=== PATIENT | female | born 1965 | race Caucasian/White ===

== ENCOUNTER 2017-01-02 12:41 | Emergency (ER) | payer OTHER ==
[~2017-01-02] VITALS: Ht 160 cm; Wt 75.0 kg
[2017-01-02 12:55] VITALS: BP 127/68
== END 2017-01-02 17:48 | disposition home or self-care (01) ==
LOC: ER 16:38
DX: M25.561 Pain in right knee (principal); R03.0 Elevated blood-pressure reading, without diagnosis of hypertension
CPT/HCPCS: 73562; 99284

== ENCOUNTER 2019-04-24 11:22 | Emergency (ER) | payer MEDICAID, OTHER ==
[~2019-04-24] VITALS: Ht 160 cm; Wt 78.0 kg
[2019-04-24 15:21] LABS: CLARITY URINE CLEAR (CLEAR); COLOR URINE YELLOW (YELLOW); KETONES URINE NEGATIVE (NEGATIVE); LEUKOCYTE ESTERASE URINE NEGATIVE (NEGATIVE); NITRITE URINE NEGATIVE (NEGATIVE); OCCULT BLOOD URINE TRACE (NEGATIVE); PH URINE 7.5 (4.5-8.0); PROTEIN URINE NEGATIVE (NEGATIVE); SPECIFIC GRAVITY URINE 1.012 (1.005-1.030); UROBILINOGEN URINE 0.2 E.U./dL (0.2-1.0)
[2019-04-24 15:23] LABS: BASOPHILS % 0.6 % (0.0-2.0); EOSINOPHILS % 1.2 % (0.0-5.0); HEMATOCRIT. 42.4 % (36.0-48.0); HEMOGLOBIN. 14.5 g/dL (12.0-16.0); LYMPHOCYTES % 42.4 % (20.0-50.0); MEAN CORPUSCULAR HEMOGLOBIN 30.7 pg (28.0-32.0); MEAN CORPUSCULAR VOLUME 89.8 fL (81.0-99.0); MEAN PLATELET VOLUME 8.5 fl (7.4-10.4); MONOCYTES % 5.3 % (2.0-8.0); NEUTROPHILS % 50.5 % (40.0-76.0); PLATELET 214 x1000/uL (130-400); RED BLOOD CELL COUNT 4.72 mill/uL (4.2-5.4)
[2019-04-24 15:26] LABS: CHLORIDE 104 mEq/L (98-107)
[2019-04-24 15:30] LABS: ETHANOL BLOOD < 10 mg/dL
[2019-04-24 15:31] LABS: *AMPHETAMINES SCREEN URINE NEGATIVE (NEGATIVE); *BARBITURATES SCREEN URINE NEGATIVE (NEGATIVE)
[2019-04-24 15:33] LABS: *BENZODIAZEPINES SCREEN URINE NEGATIVE (NEGATIVE); *COCAINE SCREEN URINE NEGATIVE (NEGATIVE); CANNABINOID URINE SCREEN NEGATIVE (NEGATIVE); OPIATES URINE SCREEN NEGATIVE (NEGATIVE); PHENCYCLIDINE URINE SCREEN NEGATIVE (NEGATIVE)
[2019-04-24 15:34] LABS: METHADONE URINE SCREEN NEGATIVE (NEGATIVE)
[2019-04-24] MEDS ORDERED: KETOROLAC 30MG/ML VIAL IV ONE (16:00)
[2019-04-24 17:23] VITALS: BP 147/76
== END 2019-04-24 18:26 | disposition home or self-care (01) ==
LOC: ER 11:22
DX: H53.8 Other visual disturbances (principal); R51 Headache
CPT/HCPCS: 36415; 70450; 80053; 80305; 80320; 81003; 82962; 85025; 96374; 99284; J1885; G0480

== ENCOUNTER 2021-07-15 15:35 | Emergency (ER) | payer MEDICAID ==
[~2021-07-15] VITALS: Ht 160 cm; Wt 68.0 kg
[2021-07-15] MEDS ORDERED: MORPHINE SULFATE 4 MG/ML CPJ (NOT FOR IM USE) IV STA (15:47)
[2021-07-15] MEDS ORDERED: MAGNESIUM/ALUMINUM HYDROXIDE/SIMETHICONE 30ML UDC PO STA ×2 (15:47)
[2021-07-15] MEDS ORDERED: PANTOPRAZOLE SODIUM 40 MG/VIAL IV STA (15:47)
[2021-07-15] MEDS ORDERED: METOCLOPRAMIDE HCL 10MG/2ML VIAL IV STA (15:47)
[2021-07-15] MEDS ORDERED: VISCOUS LIDOCAINE 2% 15 ML UDC PO STA (15:47)
[2021-07-15 15:48] VITALS: BP 170/74
[2021-07-15 16:57] LABS: BASOPHILS % 0.7 % (0.0-2.0); EOSINOPHILS % 0.4 % (0.0-5.0); HEMATOCRIT. 41.7 % (36.0-48.0); HEMOGLOBIN. 14.1 g/dL (12.0-16.0); LYMPHOCYTES % 18.2 % (20.0-50.0); MEAN CORPUSCULAR HEMOGLOBIN 29.7 pg (28.0-32.0); MEAN CORPUSCULAR VOLUME 87.9 fL (81.0-99.0); MEAN PLATELET VOLUME 8.7 fl (7.4-10.4); MONOCYTES % 6.2 % (2.0-8.0); NEUTROPHILS % 74.5 % (40.0-76.0); PLATELET 226 x1000/uL (130-400); RED BLOOD CELL COUNT 4.74 mill/uL (4.2-5.4); RED CELL DISTRIBUTION WIDTH 13.4 % (11.6-14.6)
[2021-07-15 17:01] LABS: CHLORIDE 105 mEq/L (98-107)
[2021-07-16] MEDS ORDERED: PROT40 MT ×2 (13:33)
[2021-07-16] MEDS ORDERED: MAG355OR21 MT ×2 (13:34)
== END 2021-07-15 21:14 | disposition left against medical advice (07) ==
LOC: ER 15:35
DX: Z53.21 Procedure and treatment not carried out due to patient leaving prior to being seen by health care provider (principal); I49.9 Cardiac arrhythmia, unspecified
CPT/HCPCS: 36415; 71045; 80053; 83605; 83880; 84484; 85025; 93005

== ENCOUNTER → 2021-07-16 | Emergency (ER) | payer MEDICAID ==
[~2021-07-16] VITALS: Ht 160 cm; Wt 73.0 kg
[~2021-07-16] MED LIST: HYDROMORPHONE HCL/PF 2MG/ML CPJ IV PRN; LABETALOL 5MG/ML SYR 20 MG/4 ML SYRINGE IV PRN; MAG355OR21 MT; MEPERIDINE HCL/PF 25MG/ML CPJ IV PRN; ONDANSETRON HCL 4MG/2ML INJ IV PRN; PROT40 MT
== END ==
LOC: ER 10:35
DX: R10.13 Epigastric pain (principal); Z53.21 Procedure and treatment not carried out due to patient leaving prior to being seen by health care provider
CPT/HCPCS: Z7610 ×2

== ENCOUNTER 2023-02-15 13:52 | Emergency (ER) | payer OTHER ==
[~2023-02-15] VITALS: Ht 160 cm; Wt 77.0 kg
[~2023-02-15 13:52] MED LIST changes: +HYDR-4005 MT; -HYDROMORPHONE HCL/PF 2MG/ML CPJ IV PRN; -LABETALOL 5MG/ML SYR 20 MG/4 ML SYRINGE IV PRN; -MAG355OR21 MT; -MEPERIDINE HCL/PF 25MG/ML CPJ IV PRN; -ONDANSETRON HCL 4MG/2ML INJ IV PRN; -PROT40 MT
[2023-02-15 13:57] VITALS: O2SAT 98
[2023-02-15] MEDS ORDERED: NAPR-681 PO (15:31)
[2023-02-15 15:59] VITALS: BP 142/86; PULSE 79; RESP 18; TEMP 98.2
== END 2023-02-15 16:01 | disposition home or self-care (01) ==
LOC: ER 13:52
DX: S40.022A Contusion of left upper arm, initial encounter (principal); W18.39XA Other fall on same level, initial encounter; Y93.89 Activity, other specified; Y92.89 Other specified places as the place of occurrence of the external cause; Y99.8 Other external cause status
CPT/HCPCS: 73060; 73090; 99284

== ENCOUNTER 2023-10-10 17:55 | Emergency (ER) | payer MEDICAID, OTHER ==
[~2023-10-10] VITALS: Ht 160 cm; Wt 72.7 kg
[~2023-10-10 17:55] MED LIST changes: +NAPR-681 PO
[2023-10-10 18:05] VITALS: O2SAT 95
[2023-10-10] MEDS: IBUPROFEN 600MG TABLET PO ONE (20:59)
[2023-10-10] MEDS ORDERED: IBUP-2029 MT (21:19)
[2023-10-10 21:40] VITALS: BP 140/60; PULSE 80; RESP 18; TEMP 98.4
== END 2023-10-10 21:45 | disposition home or self-care (01) ==
LOC: ER 17:55
DX: S40.021A Contusion of right upper arm, initial encounter (principal); S80.01XA Contusion of right knee, initial encounter; S10.93XA Contusion of unspecified part of neck, initial encounter; K80.80 Other cholelithiasis without obstruction; Z90.49 Acquired absence of other specified parts of digestive tract; Z98.51 Tubal ligation status; W18.39XA Other fall on same level, initial encounter; Y93.89 Activity, other specified; Y92.89 Other specified places as the place of occurrence of the external cause; Y99.8 Other external cause status
CPT/HCPCS: 73562; 73700; 99284; Z7610